=== PATIENT | male | born 1990 | race Caucasian/White ===

== ENCOUNTER 2018-11-25 20:57 | Inpatient (IN) ==
[2018-11-25 21:51] LABS: OCCULT BLOOD 1 NEGATIVE (NEGATIVE)
[2018-11-25 22:09] LABS: BILIRUBIN URINE NEGATIVE (NEGATIVE); BLOOD URINE NEGATIVE (NEGATIVE); CLARITY CLEAR (CLEAR); COLOR YELLOW; GLUCOSE URINE NEGATIVE (NEGATIVE); KETONE URINE TRACE mg/dL (NEGATIVE); LEUKOCYTES URINE NEGATIVE (NEGATIVE); NITRITE URINE NEGATIVE (NEGATIVE); PH URINE 6.5; PROTEIN URINE NEGATIVE (NEGATIVE); SP GRAVITY URINE 1.015; UROBILINOGEN URINE NORMAL
[2018-11-25 22:19] LABS: UR AMPHETAMINES QUAL NONE DETECTED (NONE DETECT); UR BARBITUATES QUAL NONE DETECTED (NONE DETECT); UR BENZODIAZEPIN QUAL NONE DETECTED (NONE DETECT); UR CANNABINOIDS QUAL PRESUMPTIVE POSITIVE (NONE DETECT); UR COCAINE QUAL NONE DETECTED (NONE DETECT); UR METHADONE QUAL NONE DETECTED (NONE DETECT); UR METHAMPHETAMINE QUAL NONE DETECTED (NONE DETECT); UR OPIATES QUAL NONE DETECTED (NONE DETECT); UR OXYCODONE QUAL NONE DETECTED (NONE DETECT); UR PCP QUAL NONE DETECTED (NONE DETECT); UR PROPOXYPHENE QUAL NONE DETECTED (NONE DETECT); UR TCA QUAL NONE DETECTED (NONE DETECT); URINE BACTERIA NEGATIVE /HFP; URINE EPITHELIAL CELLS <10 /HPF (<10); URINE RBC <10 /HPF (<10); URINE SOURCE CLEAN CATCH; URINE WBC <10 /HPF (<10)
[2018-11-25 22:24] LABS: BASO# 0.01 X1000 (0.0-0.2); BASO% 0.2 % (0.0-0.8); EOS# 0.18 X1000 (0.0-0.7); EOS% 2.8 % (0.0-10.0); HEMATOCRIT 40.6 % (42.0-52.0); HEMOGLOBIN 14.3 g/dL (14.0-18.0); LYMPH# 1.79 X1000 (1.2-3.4); LYMPH% 28.1 % (20.5-51.1); MCH 29.5 PG (27-31); MCHC 35.2 g/dL (33-37); MCV 83.7 FL (81-99); MONO# 0.34 X1000 (0.11-0.59); MONO% 5.3 % (1.7-9.3); MPV 9.8 FL (7.4-10.4); NEUT# 4.06 X1000 (1.4-6.5); NEUT% 63.6 % (42.2-75.2); PLT 265 X1000 (130-400); RBC 4.85 XMIL (4.7-6.1); RDW 12.1 % (11.5-14.5); WBC 6.38 X1000 (4.8-10.8)
[2018-11-25 22:33] LABS: INR 0.93; PROTIME 12.9 Seconds (11.0-16.0); PTT 32.5 Seconds (22.3-41.8)
[2018-11-25 22:38] LABS: AGAP 12; ALBUMIN 4.9 g/dL (3.5-5.0); ALKALINE PHOSPHATASE 81 U/L (32-122); BUN 16 mg/dL (8-22); CALCIUM 9.4 mg/dL (8.8-10.2); CHLORIDE 105 mmol/L (98-107); COSMO 280; CREATININE 0.8 mg/dL (0.7-1.2); ESTIMATED GFR > 60; GLUCOSE 94 mg/dL (70-104); GOT 16 U/L (10-34); GPT 13 U/L (10-44); LIPASE 35 U/L (13-60); POTASSIUM 3.6 mmol/L (3.5-5.1); SODIUM 140 mmol/L (136-145); TCO2 23 mmol/L (25-35); TOTAL PROTEIN 7.5 g/dL (6.3-8.3)
[2018-11-26] MEDS ORDERED: ZOFRAN IV PRN (01:19)
[2018-11-26] MEDS ORDERED: MORPHINE IV PRN (01:19)
[2018-11-26] MEDS ORDERED: NS 1,000 ML IV ONE (01:19)
[2018-11-26] MEDS ORDERED: TORADOL IV PRN (01:19)
--- NOTE | 2018-11-26 01:24 | PROVIDER DOCUMENTATION ---
This chart was entered by Erika Davis Scribe, acting as scribe for Chelsea Leblanc MD. HPI-Abdominal Pain/GI Problem - General Chief Complaint: Rectal Bleeding Stated Complaint: rectal bleed Time Seen by Provider: 11/25/18 21:05 Source: patient Allergies/Adverse Reactions: Patient Allergies Allergy/AdvReac Type Severity Reaction Status Date / Time No Known Allergies Allergy Verified 11/25/18 21:02 Home Medications: Home Medication List Medication Instructions Recorded Confirmed Last Taken Type NK [No Home Medications] 11/25/18 11/25/18 Unknown History - History of Present Illness-ABD Nature of Presenting Problems: pt is a 28 yr old male presenting with 3 day complaint of low abdominal pain and passing blood, pt denies any other complaints, reports rectal burning and several episodes of dark and bright red blood and clots without stool. no prior hx Abdominal Pain Onset Location: reports: suprapubic Pain Radiation: reports: no radiation Quality of Pain: reports: burning (rectal), cramping (abdominal) Severity in ED: reports: moderate Onset/Duration: reports: 3 days ago Timing: reports: intermittent Activities at Onset: reports: light activity Exposure to sick contacts?: No Modifying Factors: improves with: nothing Associated Symptoms: reports: constipation. denies: diarrhea, fatigue, fever/chills, nausea, vomiting, weakness Last BM: this afternoon Dark Stools Present?: reports: bright red blood Rectal Bleeding: reports: bleeding without stool Rectal Pain: reports: other (rectal burning) Bruising or Bleeding Gums?: No Similar Symptoms Previously?: No Recently seen or treated by another doctor?: No Review of Systems - Adult - REVIEW OF SYSTEMS - ADULT Constitutional: denies: chills, fever, fatique, weight loss Eyes: reports: no symptoms reported Ears, Nose, Mouth & Throat: reports: no symptoms reported Cardiovascular: reports: no symptoms reported Respiratory: reports: no symptoms reported Gastrointestinal: reports: abdominal pain, constipation, rectal bleeding. denies: diarrhea, nausea, vomiting Genitourinary: reports: no symptoms reported Musculoskeletal: reports: no symptoms reported Integumentary: reports: no symptoms reported Neurological: reports: no symptoms reported Psychiatric: reports: no symptoms reported Endocrine: reports: no symptoms reported Hematologic/Lymphatic: reports: no symptoms reported Allergic/Immunologic: reports: no symptoms reported All Other Systems: Reviewed and Negative Past History - Adult - PAST MEDICAL HISTORY-ADULT Review of Records: reports: Nursing Assessment Review, Medications Reviewed, Social history reviewed & non-contributory. Major Childhood Illnesses: reports: denies history Cardiovascular: reports: denies history Respiratory: reports: denies history Gastrointestinal: reports: denies history Obstetrical/Gynecological: reports: denies history Genitourinary: reports: denies history Musculoskeletal: reports: denies history Neurological: reports: denies history Endocrine/Immune: reports: denies history Other Conditions: reports: denies history - IMMUNIZATION STATUS Childhood Immunizations: See Nurse Assessment Flu Vaccine: See Nurse Assessment - FAMILY HISTORY Family History: reviewed, not pertinent - SOCIAL HISTORY Smoking: cigar Substance Use: alcohol, marijuana Alcohol Use Frequency: occasionally Living Situation: alone Physical Exam-General - PHYSICAL EXAM-ADULT Initial Vital Signs Reviewed: Yes - CONSTITUTIONAL General Appearance: appears well, alert, no apparent distress, anxious - EYES Eyes: PERRL/EOMI - HEAD, EARS, NOSE, MOUTH & THROAT HENMT: normocephalic/atraumatic, moist mucous membranes, normal ENT inspection - NECK Neck: non-tender, full range of motion, supple, normal inspection - RESPIRATORY Respiratory: chest non-tender, lungs clear, normal breath sounds - CARDIOVASCULAR Cardiovascular: normal peripheral pulses, regular rate, rhythm, no edema - GASTROINTESTINAL (ABDOMEN) Abdominal Exam: normal bowel sounds, soft, tenderness (lower) - GENITOURINARY Rectal Exam: normal exam, normal rectal tone. negative: black stool, blood streaked stool, hemorrhoids - MUSCULOSKELETAL Back Exam: normal inspection, no CVA tenderness, no vertebral tenderness Extremity: normal range of motion, non-tender, normal gait, normal inspection - SKIN Integumentary: normal color, normal turgor, warm/dry - NEUROLOGIC Neurologic: grossly normal - PSYCHIATRIC Psych/Mental Status: normal mood/affect, oriented x 3 Progress - PLAN OF CARE/RESULTS Progress/Plan/Lab Results: Vital Signs - 8 hr 11/25/18 20:58 Temperature 97.6 F Pulse Rate 89 Respiratory Rate 20 Blood Pressure 134/83 O2 Sat by Pulse Oximetry [address] showing colitis. Hgb stable and no luekocytosis. Patient endorses history of gas, and pain throughout the year and a previous history of bleeding that he never followed up for. I spoke to patient about DC with GI followup vs admission with possible GI consult. He states he just moved here from [place] and has no followup. Given his symptoms of reported gushing blood from his rectum will admit. Spoke to Dr Hutchins software sales consultant for hospitalist who accepted patient for admission. Wanted the antibiotics but wanted to hold off steroids at this time. Basic orders placed. Stable with floor. Result Diagrams: 11/25/18 21:42 11/25/18 21:42 - CT/MRI 1 CT Study: Abdomen, Pelvis Impression: See EMR Report (Colitis) - CONSULTS/PCP/HOSPITALIST Notification #1 *Consult/PCP/Hospitalist*: Dr Hutchins Time Discussed: :23 Consult Disposition: Admit Departure - Departure Date of Disposition Decision: 11/26/18 Time of Disposition Decision: : DIAGNOSIS: Colitis, Rectal bleeding Disposition: ADMITTED INPATIENT 09 Certified Medical Emergency: Emergent Condition: Stable Referrals and Follow-Ups: None,PCP [Primary Care Provider] - Discharge Education: Steps to Quit Smoking, [id number] - Critical Care Note This patient required my direct & personal management of CC.: No Attestation - Physician/ ANH Attestation Patient care was provided by Advanced Practice Provider:: No The physician spent face to face time with patient:: Yes Advanced Practice Provider documentation review:: Supervising physician onsite and consulted in the evaluation and care of this patient. The physician did have a face to face encounter with the patient. This chart was documented by the indicated scribe, (Erika Davis Scribe) and accurately reflects the services I performed and decisions made by me, Chelsea Leblanc MD, as attested by the provider's signature.
[2018-11-26] MEDS ORDERED: ROCEPHIN 1 GM in NS 50 ML IV SCH (01:30)
[2018-11-26] MEDS ORDERED: FLAGYL 500 MG/NS 500 MG/100 ML IVPB IV SCH (01:30)
[2018-11-26] MEDS: BENTYL PO PRN ×3 (02:04→23:16)
[2018-11-26 08:13] LABS: HEMATOCRIT 36.9 % (42.0-52.0); HEMOGLOBIN 12.6 g/dL (14.0-18.0); MCH 28.8 PG (27-31); MCHC 34.1 g/dL (33-37); MCV 84.2 FL (81-99); MPV 9.3 FL (7.4-10.4); RBC 4.38 XMIL (4.7-6.1); WBC 5.94 X1000 (4.8-10.8)
--- NOTE | 2018-11-26 08:28 | Diag Imaging Result Doc PS360 ---
EXAM: CT ABD/PELVIS W/IV CONT ONLY HISTORY: GI bleeding TECHNIQUE: This exam was performed using automated exposure control, adjustment of mA or kV according to patient size, and/or use of iterative reconstruction technique. COMPARISON: None. FINDINGS: Lung bases: Unremarkable. Hepatobiliary: Normal liver attenuation. No intrahepatic or extrahepatic biliary ductal dilatation is identified. No calcified gallstones are seen. No suspicious masses are appreciated. Pancreas/Adrenal glands/Spleen: Normal size and enhancement. No cysts or solid masses are appreciated. Kidneys: No nephrolithiasis or hydronephrosis is appreciated. Normal bilateral enhancement. No suspicious masses. Retroperitoneum: Normal caliber aorta. No lymphadenopathy. Bowel/Mesentery: Normal caliber small and large bowel loops. No evidence for obstruction. No pneumatosis, or inflammatory change. There is diverticulosis. There is no evidence for diverticulitis. There are prominent right lower quadrant mesenteric lymph nodes. The sigmoid colon is nondistended, however, there may be mild bowel wall thickening. Appendix: There is a 2 mm appendicolith. No evidence for acute appendicitis. No pneumoperitoneum is identified. There is a small amount of free fluid within the pelvis. Pelvis: Reproductive organs show no acute abnormality. Urinary bladder is unremarkable. No acute bony abnormality is demonstrated. Preliminary interpretation was given by [facility]. IMPRESSION: 1.Possible sigmoid colonic wall thickening difficult to assess due to nondistention. 2.Diverticulosis. There is no evidence for diverticulitis. 3.Small appendicolith. No evidence for acute appendicitis. 4.Prominent right lower quadrant mesenteric lymph nodes. 5.Small amount of free fluid within the pelvis. Electronically signed by Joann Retana 11/26/2018 8:26 AM
[2018-11-26 08:31] LABS: AGAP 10; ALKALINE PHOSPHATASE 66 U/L (32-122); BUN 11 mg/dL (8-22); CALCIUM 8.9 mg/dL (8.8-10.2); CHLORIDE 104 mmol/L (98-107); COSMO 274; CREATININE 0.7 mg/dL (0.7-1.2); ESTIMATED GFR > 60; GLUCOSE 82 mg/dL (70-104); GOT 13 U/L (10-34); GPT 10 U/L (10-44); MAGNESIUM 1.9 mg/dL (1.5-2.7); POTASSIUM 3.4 mmol/L (3.5-5.1); SODIUM 138 mmol/L (136-145); TCO2 24 mmol/L (25-35); TOTAL PROTEIN 6.3 g/dL (6.3-8.3)
[2018-11-26] MEDS ORDERED: FLU VACCINE IM ONE (09:00)
[2018-11-26] MEDS: LEVAQUIN 500 MG/D5W 500 MG/100 ML IVPB IV SCH (09:12)
[2018-11-26] MEDS: FLAGYL 500 MG/NS 500 MG/100 ML IVPB IV SCH ×3 (10:09→22:06)
[2018-11-26] MEDS: DILAUDID IV PRN ×2 (14:40→17:42)
[2018-11-27] MEDS ORDERED: ATIVAN PO PRN (00:48)
--- NOTE | 2018-11-27 02:08 | HISTORY AND PHYSICAL ---
CHIEF COMPLAINT: Abdominal pain, rectal bleeding. HISTORY OF PRESENT ILLNESS: The patient is a 28-year-old male who presented to the hospital with abdominal pain, cramping and nausea. No real vomiting. He notes that his symptoms came one fairly suddenly over the past few days. He has had no previous issues. No chronic issues with abdominal pain, cramping and such. ALLERGIES: No known drug allergies. MEDICATIONS: He is on no current medications. PAST MEDICAL HISTORY: No chronic active medical problems. REVIEW OF SYSTEMS: As noted above. Denies any fevers, chills. Denies dysuria, urinary frequency, urgency, constipation or melena. He does have some blood in his stool today that came on earlier. He notes that he seems to be better. He has had diarrhea for the past 2-3 days, prior to that nothing. He does not have chronic constipation, chronic diarrhea or chronic abdominal pain. FAMILY HISTORY: Noncontributory. No family history of inflammatory bowel disease. SOCIAL HISTORY: The patient is single, lives alone. He does drink alcohol occasionally. He does smoke marijuana occasionally. He smokes cigars occasionally. PHYSICAL EXAMINATION: VITAL SIGNS: Reviewed. Temperature 97.7 degrees, pulse 89, respiratory 20, BP 134/83, saturation 99% on room air. GENERAL: The patient is awake. Currently he is in no respiratory distress, although he is somewhat ill appearing. He has significant abdominal cramping and pain with any real movement. He denies any hematemesis, melena or hematochezia currently. HEENT: Normocephalic. NECK: Supple. CARDIOVASCULAR: Regular rate. No murmurs. CHEST: Clear. ABDOMEN: Soft. Diffusely tender, mainly in the bilateral lower quadrants. Positive bowel sounds. EXTREMITIES: Moves all extremities. NEUROLOGIC: No changes. LABORATORY DATA: CBC, CMP essentially negative. DIAGNOSTIC DATA: CT demonstrates possible colon inflammation and mesenteric adenitis. ASSESSMENT: 1. Mesenteric adenitis. 2. Colitis. 3. Hematochezia. 4. Intense abdominal pain. PLAN: We will continue the patient in the hospital. I certainly expect this is going to be more viral or inflammatory; however, we will place him on antibiotics until we have a more clear picture. If he continues to bleed, we will need to transition him to [facility] for endoscopy. Currently I do not feel as though that is necessary. cc: Lucas Hutchins MD
[2018-11-27] MEDS: FLAGYL 500 MG/NS 500 MG/100 ML IVPB IV SCH ×3 (03:53→20:14)
[2018-11-27] MEDS: LEVAQUIN 500 MG/D5W 500 MG/100 ML IVPB IV SCH (09:04)
[2018-11-27] MEDS ORDERED: SOLU-MEDROL IV ONE (12:56)
[2018-11-27] MEDS ORDERED: TORADOL IV PRN (14:38)
[2018-11-27] MEDS: BENTYL PO PRN ×2 (15:13→21:48)
[2018-11-27] MEDS: ATIVAN PO PRN (20:36)
--- NOTE | 2018-11-27 23:00 | PROGRESS NOTE ---
DATE: 11/27/2018 SUBJECTIVE: The patient noted this morning that his pain was better and he wanted to try to eat. However, eating breakfast made his pain worsened. The patient denies any fevers or chills. States his abdominal pain is still present. Noted that he had to stop eating because he "felt diarrhea in his stomach." When asked this morning if he had any further episodes of blood in his stool, the patient somewhat oddly lifted his bed sheets and looked under his gown and then said it appears not. PHYSICAL EXAMINATION: Vital Signs: Reviewed. He is afebrile. Pulse 80s, respiratory 20, BP stable. General: Patient is awake, alert. He is in no respiratory distress. Does somewhat appear ill appearing when he attempts to move around due to his abdominal pain. HEENT: Normocephalic. Neck: Supple. Cardiovascular: Regular rate. No murmurs. Chest: Clear, nonlabored. Abdomen: Soft diffusely but mildly tender throughout. Positive bowel sounds. Extremities: Moves all extremities. ASSESSMENT: 1. Mesenteric adenitis. 2. Colitis. 3. Hematochezia. He has had no further episodes in the hospital. Was heme-negative in the ER. PLAN: Given that his symptoms have worsened or at least not improving, we are going to transfer him to [facility], ask GI for assistance and will likely need endoscopy. cc: Lucas Hutchins MD
[2018-11-28] MEDS: FLAGYL 500 MG/NS 500 MG/100 ML IVPB IV SCH ×2 (02:53→09:28)
[2018-11-28 07:24] LABS: HEMATOCRIT 39.3 % (42.0-52.0); HEMOGLOBIN 13.5 g/dL (14.0-18.0); LYMPH# 0.67 X1000 (1.2-3.4); LYMPH% 10.5 % (20.5-51.1); MCH 28.9 PG (27-31); MCHC 34.4 g/dL (33-37); MCV 84.2 FL (81-99); MONO# 0.12 X1000 (0.11-0.59); MONO% 1.9 % (1.7-9.3); MPV 9.7 FL (7.4-10.4); NEUT# 5.57 X1000 (1.4-6.5); NEUT% 87.6 % (42.2-75.2); PLT 259 X1000 (130-400); RBC 4.67 XMIL (4.7-6.1); RDW 11.8 % (11.5-14.5); WBC 6.36 X1000 (4.8-10.8)
[2018-11-28 07:59] LABS: AGAP 15; ALB/GLOB RATIO 1.7; ALBUMIN 4.3 g/dL (3.5-5.0); ALKALINE PHOSPHATASE 72 U/L (32-122); BUN 16 mg/dL (8-22); CALCIUM 9.2 mg/dL (8.8-10.2); CHLORIDE 103 mmol/L (98-107); COSMO 282; CREATININE 0.9 mg/dL (0.7-1.2); ESTIMATED GFR > 60; GLUCOSE 117 mg/dL (70-104); GOT 13 U/L (10-34); GPT 8 U/L (10-44); POTASSIUM 4.4 mmol/L (3.5-5.1); SODIUM 140 mmol/L (136-145); TCO2 22 mmol/L (25-35); TOTAL PROTEIN 6.8 g/dL (6.3-8.3)
[2018-11-28 08:06] LABS: LYMPHS 10 % (21-51); MONO 3 % (1-9); SEGS 87 % (42-75)
[2018-11-28 08:07] LABS: ANISOCYTOSIS 1+; MICROCYTOSIS 1+; POLYCHROM OCCASIONAL
[2018-11-28 08:08] LABS: HYPOCHROM 1+
[2018-11-28] MEDS: ATIVAN PO PRN ×2 (09:41→20:06)
[2018-11-28] MEDS ORDERED: TOPAMAX PO ONE (11:15)
[2018-11-28] MEDS: NS 1,000 ML IV SCH ×2 (11:34→22:12)
--- NOTE | 2018-11-28 11:58 | Diag Imaging Result Doc PS360 ---
CT HEAD W/O CONTRAST - 11/28/2018 INDICATION: recurrent headaches COMPARISON: None FINDINGS: The ventricles and sulci are normal in size and contour. No intracranial mass or hemorrhage. The skull is intact. The sinuses mastoids and middle ears are clear. IMPRESSION: Negative exam. This exam was performed using automated exposure control, adjustment of mA or kV according to patient size, and/or use of iterative reconstruction technique Electronically signed by Jabari Albright 11/28/2018 11:56 AM
[2018-11-28] MEDS ORDERED: FIORICET PO PRN (12:27)
--- NOTE | 2018-11-28 16:03 | GASTROENTEROLOGY CONSULTATION ---
DATE: 11/28/2018 REASON FOR CONSULT: Abdominal pain and bleeding. HISTORY OF PRESENT ILLNESS: Mr. Castro is a 28-year-old male. His symptoms started 4 to 5 days back, he was having stomach pain and bleeding. He noticed that his bedsheets were stained with blood, and when in shower he saw blood gushing out through his rectum and rushed to [facility] via ambulance. He described the blood as dark red with mucus. He was admitted at [facility] for 3 days and was brought to [facility] yesterday. He denied having any fever or chills but has nausea and vomiting. He mentioned that since he has been at [facility] he has not noticed any bleeding. He complains of generalized abdominal pain describing as cramping and aching, on a scale of 1 to 10 he describes it as 3 and the pain is mostly in the lower abdominal quadrants. He has not had a bowel movement for the last 4 days, but has been urinating a lot. He has a history of constipation, lately noticed that he is not able to tolerate spicy foods. Extensive history of taking [id number] medicines like aspirin,Tylenol and Benadryl for headaches almost every day. He mentioned losing almost 50 pounds. ALLERGIES: No known drug allergies. PAST MEDICAL HISTORY: Mental health illness, bipolar, depression, anxiety. Cigar smoking, marijuana abuse, and constipation FAMILY HISTORY: Hypertension, diabetes, colon cancer and blindness. SOCIAL HISTORY: Currently single, is about to get engaged, smoker, smokes 1 or 2 cigars every 2 to 3 weeks. Alcohol occasionally, he used to have marijuana in the past. He is currently unemployed. MEDICATIONS: OTC aspirin, Tylenol, Benadryl. REVIEW OF SYSTEMS: As per the HPI otherwise 12 point review of system is negative. PHYSICAL EXAMINATION: Vital Signs: Temperature 97.7 degrees, pulse is 60, respirations 16, blood pressure is 115/61, oxygen saturation is 98% on room air. Weight 138 pounds, BMI 21.1 kg per meter square. General: He is alert, oriented x3, good historian, answers questions appropriately, in no acute distress. HEENT: Pale conjunctivae. No icterus. PERRL. Neck: Supple. Lungs: Clear to auscultation in all anterior and posterior guillen. Cardiovascular: Regular rate and rhythm. No murmurs, rubs, or gallops heard on auscultation. Abdomen: Soft, nontender, nondistended. Active bowel sounds heard in all 4 quadrants. Extremities: No clubbing, cyanosis or edema noted. 2+ pedal pulses present bilaterally. Neurologic: Alert, oriented x3, nonfocal. Cranial nerves 2-12 grossly intact. LABS: WBC 6.36, RBC 4.67, hemoglobin is 13.5, hematocrit is 39.3, platelet count is 259,000. Sodium is 140, potassium is 4.4, chloride is 103, carbon dioxide is 22, anion gap is 15, BUN is 16, creatinine is 0.9, AST 13, ALT 8, alkaline phosphatase 72. Urinalysis was negative. Abdomen and the pelvis on CT showed possible sigmoid colonic wall thickening, diverticulosis, small appendicolith, prominent right lower quadrant mesenteric lymph nodes. Small amount of free fluid within the pelvis. ASSESSMENT AND PLAN: Abdominal pain GI bleed Constipation Nausea and Vomiting Smoker PLAN: We will give patient clear liquids and will do a colonoscopy on Saturday. He is on antiemetics Zofran for nausea and vomiting and Bentyl for his stomach cramps. Patients H & H is 13.5 and 39.3, he is not bleeding currently, We will continue to monitor the patient's CBC and BMP and follow the plan of care per primary team. Further plan of care will be based on the colonoscopy findings. This plan was discussed with Dr. Marshall. Thank you for your consult. Please call us for any questions or concerns. Dictated by DEANDRA Oviedo for Alec Marshall MD cc: Lucas Hutchins MD Physician Attestation I have seen and examined the patient. I have discussed and reviewed the the note by Grace LIRIANO and agree with findings and plan as documented. In brief, Mr. Denise Mosher is a 28 year old man who presents with cramping abdominal pain, rectal bleeding and abnormal weight loss. CT shows some ?sigmoid wall thickening, diverticulosis, prominent RLQ mesenteric LNs, and small appendicolith. He takes aspirin regularly for headaches. No diarrhea. +chronic constipation. No FHx of IBD or GI malignancies. Will plan for diagnostic colonoscopy Saturday. [facility]ICAL CENTERTrisha
[2018-11-29] MEDS: DILAUDID IV PRN ×3 (00:58→08:57)
[2018-11-29] MEDS: ATIVAN PO PRN ×2 (03:24→16:37)
[2018-11-29] MEDS: PROTONIX IV SCH (06:18)
[2018-11-29] MEDS: SODIUM CHLORIDE 0.9% INJ SCH (06:18)
[2018-11-29 08:01] LABS: HEMATOCRIT 34.5 % (42.0-52.0); HEMOGLOBIN 11.5 g/dL (14.0-18.0); MCH 28.9 PG (27-31); MCHC 33.3 g/dL (33-37); MCV 86.7 FL (81-99); MPV 9.4 FL (7.4-10.4); RBC 3.98 XMIL (4.7-6.1); WBC 5.62 X1000 (4.8-10.8)
[2018-11-29 08:45] LABS: AGAP 8; BUN 6 mg/dL (8-22); CALCIUM 8.7 mg/dL (8.8-10.2); CHLORIDE 109 mmol/L (98-107); COSMO 282; CREATININE 0.9 mg/dL (0.7-1.2); ESTIMATED GFR > 60; GLUCOSE 93 mg/dL (70-104); POTASSIUM 3.8 mmol/L (3.5-5.1); SODIUM 143 mmol/L (136-145); TCO2 26 mmol/L (25-35)
[2018-11-29] MEDS: NS 1,000 ML IV SCH ×2 (08:57→21:34)
[2018-11-29] MEDS: ZOFRAN IV PRN (08:58)
[2018-11-29] MEDS: TOPAMAX PO SCH (13:33)
[2018-11-29] MEDS: BENTYL PO PRN (15:35)
--- NOTE | 2018-11-29 16:03 | PROGRESS NOTE ---
DATE: 11/29/2018 SUBJECTIVE: The patient is sitting up eating broth. He states that he has been having a lot a rectal pain. OBJECTIVE: Vital Signs: Temperature 97.4 degrees, blood pressure 128/80, heart rate 70, respirations 20, O2 saturations 100% on room air. General: This is a young male sitting up in bed in no acute distress. Heart: S1, S2 normal. Regular rate and rhythm. Lungs: Clear to auscultation bilaterally. Abdomen: Positive bowel sounds. Soft, nontender, nondistended. Extremities: No edema. No cyanosis. Neurologic: The patient is alert and oriented x3. LABS: Hemoglobin 11, hematocrit 34, platelets 219,000. Sodium 143, potassium 3.8, chloride 109, CO2 26, BUN 6, creatinine 0.9, glucose 93. ASSESSMENT AND PLAN: 1. Sigmoid colitis. Continue with IV fluids. GI is following. 2. Rectal pain. We will order Anusol per rectum. 3. Migraine headaches. Continue with Topamax. 4. Gastrointestinal prophylaxis. Continue on IV Protonix. 5. Deep vein thrombosis prophylaxis. Continue with SCDs. The patient is ambulatory. cc: MD Lucas Ferguson MD
[2018-11-29 16:34] LABS: HEMOGLOBIN A1C 5.3 % (4.8-6.0)
[2018-11-29] MEDS: ANUSOL-HC CREAM PR SCH (16:37)
--- NOTE | 2018-11-29 23:52 | PROVIDER PROGRESS NOTE ---
Progress Note S: No acute overnight events. Patient reports continued lower abdominal cramping. No rectal bleeding. +BMs Tolerating clears. O: VS T 97.7 HR 47 BP 111/69 RR 20 O2 99 RA GEN: awake, alert, NAD HEENT: anicteric, MMM NECK: supple, no JVD PULM: CTAB, no wheezing ABD: soft NT/ND, NABS EXT: no cce NEURO: nonfocal LABS: 11/29/18 11/29/18 07:39 07:39 WBC 5.62 Hgb 11.5 L Plt Count 219 Sodium 143 Potassium 3.8 Chloride 109 H Carbon Dioxide 26 BUN 6 L D Creatinine 0.9 A/P: Mr. Denise Mosher is a 28 year old man who presents with cramping abdominal pain, rectal bleeding and abnormal weight loss. CT shows some ?sigmoid wall thickening, diverticulosis, prominent RLQ mesenteric LNs, and small appendicolith. He is tolerating clears. He continues to have lower abdominal cramping without further rectal bleeding. He is tolerating clears. Will plan for diagnostic colonoscopy on Saturday. # Rectal bleeding: hgb stable; no further bleeding # Sigmoid wall thickening on CT: diagnostic colonoscopy Saturday # Abnormal weight loss: if colonoscopy negative, then patient will need diagnostic EGD # Constipation: controlled Will follow with you.
[2018-11-30] MEDS: DILAUDID IV PRN (03:08)
[2018-11-30] MEDS: ANUSOL-HC CREAM PR SCH ×3 (03:10→20:55)
[2018-11-30] MEDS: SODIUM CHLORIDE 0.9% INJ SCH (06:11)
[2018-11-30] MEDS: PROTONIX IV SCH (06:11)
[2018-11-30] MEDS: NS 1,000 ML IV SCH ×2 (06:11→16:26)
[2018-11-30 07:54] LABS: HEMATOCRIT 35.5 % (42.0-52.0); MCH 29.7 PG (27-31); MCHC 33.8 g/dL (33-37); MCV 87.9 FL (81-99); MPV 9.6 FL (7.4-10.4); RBC 4.04 XMIL (4.7-6.1); RDW 12.4 % (11.5-14.5); WBC 5.54 X1000 (4.8-10.8)
[2018-11-30 08:23] LABS: AGAP 9; BUN 6 mg/dL (8-22); CALCIUM 8.4 mg/dL (8.8-10.2); CHLORIDE 107 mmol/L (98-107); COSMO 276; CREATININE 0.8 mg/dL (0.7-1.2); ESTIMATED GFR > 60; GLUCOSE 87 mg/dL (70-104); SODIUM 140 mmol/L (136-145); TCO2 24 mmol/L (25-35)
[2018-11-30 08:31] LABS: POTASSIUM 3.9 mmol/L (3.5-5.1)
[2018-11-30] MEDS: TOPAMAX PO SCH (09:54)
[2018-11-30] MEDS: BENTYL PO PRN ×2 (09:55→16:26)
--- NOTE | 2018-11-30 11:06 | PROVIDER PROGRESS NOTE ---
Progress Note S: No acute overnight events. He reports continue abdominal cramping and scant rectal bleeding. No N/V. He is tolerating clears. O: Last Vital Signs Temp 97.7 F 11/30/18 07:43 Pulse 47 L 11/30/18 07:43 Resp 20 11/30/18 07:43 BP 111/69 11/30/18 07:43 Pulse Ox 99 11/30/18 07:43 Height 5 ft 8 in Weight 138 lb 8 oz GEN: awake, alert, NAD HEENT: anicteric, MMM NECK: supple, no JVD PULM: CTAB, no wheezing ABD: soft NT/ND, NABS EXT: no cce NEURO: nonfocal A/P: Mr. Denise Mosher is a 28 year old man who presents with cramping abdominal pain, rectal bleeding and abnormal weight loss. CT shows some ?sigmoid wall thickening, diverticulosis, prominent RLQ mesenteric LNs, and small appendicolith. Ddx includes IBD, malignancy, hemorrhoids. He is tolerating clears. Will prep and plan for diagnostic colonoscopy on Saturday. # Rectal bleeding: hgb stable; continued rectal bleeding # Sigmoid wall thickening on CT: diagnostic colonoscopy tomorrow with Dr. Maldonado # Abnormal weight loss: if colonoscopy negative, then patient will need diagnostic EGD # Constipation: controlled Will follow with you.
[2018-11-30] MEDS: ZOFRAN IV PRN ×2 (12:00→23:36)
[2018-11-30] MEDS ORDERED: GOLYTELY PO ONE (18:00)
--- NOTE | 2018-11-30 18:10 | PROGRESS NOTE ---
DATE: 11/30/2018 SUBJECTIVE: The patient complains of abdominal discomfort and loose stools. OBJECTIVE: Vital Signs: Temperature 97.7 degrees, blood pressure 130/76, heart rate 68, respirations 20, O2 saturation is 100% on room air. General: This is a young male sitting up in bed, in no acute distress. Heart: S1, S2 normal. Regular rate and rhythm. Lungs: Clear to auscultation bilaterally. Abdomen: Positive bowel sounds. Soft. Diffuse tenderness. Extremities: No edema. No cyanosis. Neurologic: The patient is alert and oriented x3. LABS: Reviewed. ASSESSMENT AND PLAN: 1. Colitis. The patient is scheduled for endoscopy tomorrow. Will await the results of the diagnostic study. 2. Migraine headaches. Continue with Topamax. 3. Gastrointestinal prophylaxis. Continue on IV Protonix. 4. Deep vein thrombosis prophylaxis. Continue with SCDs. cc: MD Lucas Ferguson MD
[2018-11-30] MEDS: ATIVAN PO PRN (20:54)
[2018-12-01] MEDS: DILAUDID IV PRN ×2 (01:11→18:26)
[2018-12-01] MEDS: NS 1,000 ML IV SCH ×3 (02:41→15:57)
--- NOTE | 2018-12-01 05:16 | PROGRESS NOTE ---
DATE: 11/28/2018 SUBJECTIVE: The patient is resting comfortably in bed. He states that he feels a little bit better today. He does complain of a daily headache. He states that he has never been diagnosed with migraines. OBJECTIVE: Vital Signs: Temperature 97.9 degrees, blood pressure 137/76, heart rate 80, respirations 20, O2 saturation 98% on room air. General: This is a young male sitting up in bed in no acute distress. Heart: S1, S2 normal. Regular rate and rhythm. Lungs: Equal air entry bilaterally. No wheezing. No rales. No rhonchi. Abdomen: Positive bowel sounds. Soft, nontender, nondistended. Extremities: No edema. No cyanosis. No calf tenderness. Neurologic: The patient is alert and oriented x3. LABS: White blood cell count 6.3, hemoglobin 13, hematocrit 39, platelets 259,000. Sodium 140, potassium 4.4, chloride 103, CO2 22, BUN 16, creatinine 0.[address] shows negative exam. ASSESSMENT AND PLAN: 1. Colonic thickening. The patient is currently on intravenous fluids and Bentyl as needed. GI is following for possible endoscopy during this hospitalization. 2. Suspected migraine headaches. We will start the patient on Topamax as well as Fioricet as needed. 3. Bipolar disorder. Aware. Will have [employer] set up an appointment for the patient to follow up with Mental Health as outpatient. 4. Gastrointestinal prophylaxis. Will start the patient on Protonix. 5. Deep vein thrombosis prophylaxis. Continue with sequential compression devices. cc: MD Lucas Ferguson MD
[2018-12-01] MEDS: PROTONIX IV SCH (06:06)
[2018-12-01 07:47] LABS: MCH 29.6 PG (27-31); MCHC 34.3 g/dL (33-37); MCV 86.4 FL (81-99); MPV 9.4 FL (7.4-10.4); RBC 4.05 XMIL (4.7-6.1); RDW 12.3 % (11.5-14.5); WBC 5.89 X1000 (4.8-10.8)
[2018-12-01 08:09] LABS: AGAP 8; BUN 4 mg/dL (8-22); CALCIUM 8.8 mg/dL (8.8-10.2); CHLORIDE 107 mmol/L (98-107); COSMO 276; CREATININE 0.9 mg/dL (0.7-1.2); ESTIMATED GFR > 60; GLUCOSE 86 mg/dL (70-104); POTASSIUM 3.3 mmol/L (3.5-5.1); SODIUM 140 mmol/L (136-145); TCO2 25 mmol/L (25-35)
[2018-12-01] MEDS: ANUSOL-HC CREAM PR SCH (08:22)
[2018-12-01] MEDS ORDERED: POTASSIUM CHLORIDE 60 MEQ in NS 500 ML IV ONE (08:29)
[2018-12-01] MEDS ORDERED: DIPRIVAN 1% ONE ×3 (11:30→11:56)
[2018-12-01] MEDS ORDERED: XYLOCAINE-MPF 2% ONE ×2 (11:33→11:34)
[2018-12-01] MEDS ORDERED: FENTANYL ONE ×2 (11:35→11:56)
--- NOTE | 2018-12-01 12:20 | ENDOSCOPY OPERATIVE NOTE ---
[facility] ENDOSCOPY OPERATIVE NOTE , PATIENT: Denise Branch ADM DATE: MR #: [id number] : 1990 COLONOSCOPY PROCEDURE REPORT PROCEDURE DATE: 12/01/2018 SURGEON: Abdon Maldonado MD STATUS: inpatient REGIONAL ECONOMIST: Veronica Bush PREOPERATIVE DIAGNOSIS: The patient is a 28 yr old male here for a colonoscopy due to CT scan showin g possible sigmoid colitis; Rectal bleeding, Constipation. PROCEDURE PERFORMED: Colonoscopy, diagnostic MEDICATIONS: Per Anesthesia PREP TYPE: GoLytely
[2018-12-01] MEDS: TOPAMAX PO SCH (12:47)
--- NOTE | 2018-12-01 13:12 | PROGRESS NOTE ---
DATE: 12/01/2018 SUBJECTIVE: The patient is resting comfortably. He is scheduled for endoscopy today. OBJECTIVE: Vital Signs: Temperature 97.8 degrees, blood pressure 119/73, heart rate 58, respirations 20, O2 saturation is 100% on room air. General: This is a young male sitting up in bed, in no acute distress. Heart: S1, S2 normal. Bradycardic. Lungs: Clear to auscultation bilaterally. Abdomen: Positive bowel sounds. Soft, nontender, nondistended. Extremities: No edema. No cyanosis. Neurologic: The patient is alert and oriented x3. Labs: White blood cell count 5.8, hemoglobin 12, hematocrit 35, platelets 220,000. Sodium 140, potassium 3.3, chloride 107, CO2 of 25, BUN 4, creatinine 0.9, glucose 86. ASSESSMENT AND PLAN: 1. Abdominal pain with possible colitis. The patient is scheduled for endoscopy today. 2. Possible hemorrhoids. Continue with Anusol. 3. Migraine headaches. Continue on Topamax. 4. Gastrointestinal prophylaxis. Continue on Protonix. 5. Deep vein thrombosis prophylaxis. Continue with sequential compression devices. cc: Debra Ferris MD
[2018-12-01] MEDS ORDERED: VITAMIN D PO SCH (15:00)
[2018-12-01] MEDS: ZOFRAN IV PRN (18:28)
[2018-12-02] MEDS: ANUSOL-HC CREAM PR SCH ×2 (00:44→08:41)
[2018-12-02] MEDS: MIRALAX PO SCH ×2 (00:44→08:41)
[2018-12-02] MEDS: ZOFRAN IV PRN (05:08)
[2018-12-02] MEDS: DILAUDID IV PRN ×2 (05:08→08:40)
[2018-12-02] MEDS: NS 1,000 ML IV SCH ×3 (06:36→13:19)
[2018-12-02] MEDS: PROTONIX IV SCH (06:37)
[2018-12-02 07:23] LABS: HEMATOCRIT 38.4 % (42.0-52.0); HEMOGLOBIN 13.5 g/dL (14.0-18.0); MCH 29.7 PG (27-31); MCHC 35.2 g/dL (33-37); MCV 84.6 FL (81-99); MPV 9.3 FL (7.4-10.4); RBC 4.54 XMIL (4.7-6.1); RDW 12.1 % (11.5-14.5); WBC 8.7 X1000 (4.8-10.8)
[2018-12-02 07:53] LABS: AGAP 12; BUN 8 mg/dL (8-22); CALCIUM 9.1 mg/dL (8.8-10.2); CHLORIDE 106 mmol/L (98-107); COSMO 276; CREATININE 0.9 mg/dL (0.7-1.2); ESTIMATED GFR > 60; GLUCOSE 97 mg/dL (70-104); POTASSIUM 3.4 mmol/L (3.5-5.1); SODIUM 139 mmol/L (136-145); TCO2 21 mmol/L (25-35)
[2018-12-02] MEDS ORDERED: MOTRIN PO PRN (08:36)
[2018-12-02] MEDS: TOPAMAX PO SCH (08:41)
[2018-12-02 12:19] VITALS: BP 99/50
--- NOTE | 2018-12-02 14:19 | GASTROENTEROLOGY PROGRESS NOTE ---
DATE: 12/02/2018 SUBJECTIVE: Mr. Branch is a 28 year old male sitting in bed, having his breakfast. Denied any nausea, vomiting, but complained of generalized abdominal tenderness in the lower quadrants. He has denied any diarrhea, nausea or vomiting. He denied having any bowel movements today, OBJECTIVE: Vital Signs: Temperature is 98.5 degrees, pulse is 56, respirations 18, blood pressure is 130/77, oxygen saturation 100% on room air. His weight is 138 pounds. BMI is 21.1 kg/m2. General: He is alert, oriented x3, and in no acute distress. Neck: Supple. HEENT: Pale conjunctivae. No icterus. PERRL. Lungs: Clear to auscultation in all anterior and posterior guillen. Cardiovascular: Regular rate and rhythm. No murmurs, rubs, or gallops heard on auscultation. Abdomen: Soft, tender, nondistended. Active bowel sounds heard in all 4 quadrants. Extremities: No clubbing, cyanosis, or edema noted, 2+ pedal pulses present bilaterally. Neurological: Alert, oriented x3. LABS: WBCs 8.70, RBC 4.54, hemoglobin is 13.5, hematocrit is 38.4, platelet count is 260. Sodium is 139, potassium is 3.4, chloride is 106, carbon dioxide is 21, anion gap is 12. BUN is 8, creatinine is 0.9, glucose is 97, calcium is 9.1. IMAGING: Head CT on 11/[address] of the abdomen and pelvis on 11/26 showed possible sigmoid colon colonic wall thickening, diverticulosis, small appendicolith. Small amount of free fluid within the pelvis and prominent right lower quadrant. Mesenteric lymph nodes. His EGD on 12/01 showed he had small internal grade 1 hemorrhoids. Stool throughout the colon. No evidence of colitis. Retroflexed view revealed internal grade 1 first-degree hemorrhoids. IMPRESSION AND PLAN: Abdominal pain GI bleed Constipation Nausea and Vomiting Smoker PLAN: The patient is on a gastrointestinal soft diet, and is tolerating, denied any nausea or vomiting. He is receiving intravenous fluids, normal saline at 100 mL/hour. We will continue him with GI prophylaxis Protonix IV 40 mg daily and then transition to oral for 6 to 8 weeks, continue MiraLAX constipation, antiemetic Zofran for his nausea and vomiting. EGD findings revealed patient has hemorrhoids, advised to have a high fiber diet. We will follow up as an outpatient at our clinic after he is discharged in 4 to 6 weeks. Continue to monitor his CBC and BMP, his H & H was 13.5 and 38.4, we will continue to follow the plan of care per his primary care team. I have discussed risk of smoking and cessation plans patient acknowledges understanding of the instructions This plan was discussed with Dr. Christianson. Please call us for any further questions or concerns. Dictated by DEANDRA Oviedo for Nitin Christianson MD cc: Nitin Christianson MD [facility]
--- NOTE | 2018-12-05 05:25 | DISCHARGE SUMMARY ---
ADMISSION DATE: 11/26/2018 DISCHARGE DATE: 12/02/2018 CONSULTANTS: Gastroenterology Dr. Marshall. PROCEDURES: Colonoscopy showing small internal hemorrhoids. No other acute issues. No sign of colitis. PERTINENT STUDIES: 1. Initial CT abdomen and pelvis showing questionable sigmoid colonic wall thickening, diverticulosis, but no real acute process. 2. Head CT unremarkable. 3. No leukocytosis. 4. Lipase and amylase within normal limits. 5. Urinalysis unremarkable. 6. Stool blood negative. 7. Urine drug screen positive only for cannabinoids. DISCHARGE DIAGNOSES: 1. Functional abdominal pain. 2. Hemorrhoids. 3. Migraine headaches. 4. Cannabis abuse. HOSPITAL COURSE: The patient presented with abdominal pain and nausea without significant vomiting. Initial evaluation was largely unremarkable aside from questionable sigmoid colitis on CT scan. Symptoms did not improve rapidly, so GI was involved. They performed colonoscopy, which showed hemorrhoids, but no other acute process. there was no evidence of colitis on colonoscopy. The patient's symptoms resolved so he was discharged to home. Suspect viral illness versus side effect of cannabis use. DISCHARGE VITAL SIGNS: Temperature 97.9 degrees, pulse 47, respirations 18, blood pressure 99/50, and O2 saturation 99% on room air. DISCHARGE MEDICATIONS: 1. Simethicone 125 mg p.o. every 6 hours as needed. 2. MiraLAX 17 g p.o. b.i.d. as needed. 3. Ibuprofen 600 mg p.o. t.i.d. as needed. FOLLOWUP AND PLAN: The patient to discharge home to follow up with PCP. TIME SPENT: Greater than 30 minutes spent arranging discharge and counseling patient. [facility]
== END 2018-12-02 15:46 | disposition home or self-care (01) | DRG 866 ==
LOC: P.ED 20:57 → SUATTDRO 11-26 01:55 → P.MEDSURG 11-26 01:55 → 3N 11-27 14:34
PROVIDERS: ATTEND Internal Medicine